=== PATIENT | male | born 1990 | race Two or more races ===

== ENCOUNTER 2016-08-06 05:25 | Emergency (ER) | payer BC ==
[2016-08-06] MEDS ORDERED: Dexamethasone IV* 4 MG/ML 1 ML (4 MG) PO ONE (05:47)
--- NOTE | 2016-08-06 05:56 | ED ---
Throat Pain/Nasal Congestion - HPI Summary HPI Summary: Patient presents for delayed evaluation of odynophagia with several days of preceding URI/nasal congestion. His PCP trialed azithromycin, which he has had several times before without problem. It hurts to swallow, but is able to swallow secretions. Denies shortness of breath, systemic symptoms. No positional or exertional symptoms. 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 - Epiglottits Risk Factors Epiglottis Risk Factors: Negative - Allergies/Home Medications Allergies/Adverse Reactions: Allergies Allergy/AdvReac Type Severity Reaction Status Date / Time Amoxicillin Allergy Intermediate Rash Verified 07/16/16 13:25 PMH/Surg Hx/FS Hx/Imm Hx Previously Healthy: Yes Endocrine/Hematology History: Denies: Hx Anticoagulant Therapy, Hx Diabetes, Hx Thyroid Disease Cardiovascular History: Denies: Hx Hypertension Respiratory History: Denies: Hx Asthma, Hx Chronic Obstructive Pulmonary Disease (COPD) GI History: Reports: Other GI Disorders - ulcerative colitis Denies: Hx Ulcer Sensory History: Reports: Hx Contacts or Glasses, Hx Eye Injury - 09/30/12 fell, hairline orbital fx Opthamlomology History: Reports: Hx Contacts or Glasses, Hx Eye Injury - 09/30/12 fell,hairline orbital fx - Surgical History Surgery Procedure, Year, and Place: testicular surgery. 9th grade, Tonsilectomy at 8 yrs age Hx Anesthesia Reactions: No Infectious Disease History: No Infectious Disease History: Denies: Hx Clostridium Difficile, Hx Hepatitis, Hx Human Immunodeficiency Virus (HIV), Hx of Known/Suspected MRSA, Hx Shingles, Hx Tuberculosis, Hx Known/ Suspected VRE, Hx Known/Suspected VRSA, History Other Infectious Disease, Traveled Outside the [place] in Last 30 Days - Social History Alcohol Use: Occasionally Substance Use Type: Reports: None Smoking Status (MU): Never Smoked Tobacco Have You Smoked in the Last Year: No Review of Systems Negative: Fever, Chills Negative: Photophobia Positive: Sore Throat. Negative: Ear Ache, Nasal Discharge Cardiovascular: Negative Negative: Palpitations, Chest Pain Respiratory: Negative Negative: Shortness Of Breath All Other Systems Reviewed And Are Negative: Yes Physical Exam Triage Information Reviewed: Yes Vital Signs On Initial Exam: Initial Vitals Temp Pulse Resp BP Pulse Ox 99.5 F 111 18 167/90 98 08/06/16 05:33 08/06/16 05:33 08/06/16 05:33 08/06/16 05:33 08/06/16 05:33 Vital Signs Reviewed: Yes Appearance: Positive: Well-Appearing, No Pain Distress, Well-Nourished Skin: Positive: Warm, Skin Color Reflects Adequate Perfusion, Dry Head/Face: Positive: Normal Head/Face Inspection Eyes: Positive: Normal, EOMI, VAMSI ENT: Positive: Normal ENT inspection, Hearing grossly normal, Pharyngeal erythema, Other - No neck stridor or stentor.. Negative: Nasal congestion, TMs normal, TM bulging, TM dull, TM red, Tonsillar swelling, Tonsillar exudate, Trismus, Muffled/hoarse voice Neck: Positive: Supple, Nontender, No Lymphadenopathy Respiratory/Lung Sounds: Positive: Clear to Auscultation, Breath Sounds Present Cardiovascular: Positive: Normal, RRR, Pulses are Symmetrical in both Upper and Lower Extremities Abdomen Description: Positive: Nontender, No Organomegaly, Soft Musculoskeletal: Positive: Normal, Strength/ROM Intact Neurological: Positive: Normal, Sensory/Motor Intact, Alert, Oriented to Person Place, Time, CN Intact II-III, Reflexes Intact, Normal Gait Diagnostics - Vital Signs Vital Signs Temp Pulse Resp BP Pulse Ox 08/06/16 05:33 99.5 F 111 18 167/90 98 - Laboratory Lab Statement: Any lab studies that have been ordered have been reviewed, and results considered in the medical decision making process. EENT Course/Dx - Differential Diagnoses Differential Diagnoses: Laryngitis, Pharyngitis, Sinusitis, Tonsilitis, URI/ Bronchitis, Other - Primary concern for URI due to particulate matter causing pharyngitis. Low concern for epiglottis or laryngitis. DC home with supportive care. Already on azithromycin and will FU with PCP. - Diagnoses Provider Diagnoses: Pharyngitis Discharge - Discharge Plan Condition: Stable Disposition: HOME Patient Education Materials: Pharyngitis (ED) Referrals: Radha Martinez MD [Primary Care Provider] - If Needed
[2016-08-06 06:24] VITALS: BP 161/82
== END 2016-08-06 06:24 | disposition home or self-care (01) ==
LOC: ED 05:25
DX: J02.9 Acute pharyngitis, unspecified (principal); Z88.0 Allergy status to penicillin
CPT/HCPCS: 99282; J1100

== ENCOUNTER 2017-03-09 17:32 | Emergency (ER) | payer BC ==
[2017-03-09 17:43] VITALS: BP 155/92
--- NOTE | 2017-03-09 18:32 | UC ---
Respiratory Complaint HPI - HPI Summary HPI Summary: 26 yo male with a 12 hr hx of runny nose/fever/chills and myalgias no st no n/v/d no CP or SOB - History of Current Complaint Chief Complaint: UCRespiratory Stated Complaint: URI Time Seen by Provider: 03/09/17 18:20 Hx Obtained From: Patient Onset/Duration: Sudden Onset, Lasting Hours Timing: Constant Severity Initially: Moderate Severity Currently: Moderate Pain Intensity: 4 Pain Scale Used: 0-10 Numeric Character: Cough: Nonproductive Alleviating Factors: Nothing Associated Signs And Symptoms: Positive: Fever, Chills, Nasal Congestion Related History: Similar Episode/Dx as: - flu - Allergies/Home Medications Allergies/Adverse Reactions: Allergies Allergy/AdvReac Type Severity Reaction Status Date / Time Amoxicillin Allergy Intermediate Rash Verified 03/09/17 17:43 PMH/Surg Hx/FS Hx/Imm Hx Previously Healthy: Yes - HX UC GI/ History: Other Other GI/ History: UC Other History Of: Negative For: Anticoagulant Therapy - Surgical History Surgical History: Yes Surgery Procedure, Year, and Place: testicular surgery. 9th grade. Tonsilectomy at 8 yrs age - Family History Known Family History: Positive: Other - no FHx UC Negative: Cardiac Disease, Hypertension, Diabetes - Social History Alcohol Use: Weekly Alcohol Amount: 1-2 times a week Substance Use Type: None Smoking Status (MU): Never Smoked Tobacco Have You Smoked in the Last Year: No Review of Systems Constitutional: Negative Skin: Negative Eyes: Negative ENT: Nasal Discharge Respiratory: Cough - NON PRODUCTIVE Cardiovascular: Negative Gastrointestinal: Negative Genitourinary: Negative Motor: Negative Neurovascular: Negative Musculoskeletal: Myalgia Neurological: Headache Psychological: Negative Is Patient Immunocompromised?: No All Other Systems Reviewed And Are Negative: Yes Physical Exam Triage Information Reviewed: Yes Appearance: Well-Appearing, No Pain Distress, Well-Nourished Vital Signs: Initial Vital Signs Temp 100.0 F 03/09/17 17:39 Pulse 112 03/09/17 17:39 Resp 16 03/09/17 17:39 BP 155/92 03/09/17 17:39 Pulse Ox 98 03/09/17 17:39 Vital Signs Reviewed: Yes Eyes: Positive: Conjunctiva Clear ENT: Positive: Hearing grossly normal, Pharynx normal, Nasal drainage, TMs normal. Negative: Tonsillar swelling, Tonsillar exudate, Trismus, Muffled/ hoarse voice Neck: Positive: Supple, Nontender, No Lymphadenopathy Respiratory: Positive: Lungs clear, Normal breath sounds, No respiratory distress, No accessory muscle use Cardiovascular: Positive: RRR, No Murmur, Tachycardia Abdomen Description: Positive: Nontender, No Organomegaly. Negative: CVA Tenderness (R), CVA Tenderness (L) Bowel Sounds: Positive: Present UC Diagnostic Evaluation - Laboratory Pertinent Lab Values Are: WNL - RAPID FLU (-) O2 Sat by Pulse Oximetry: 98 - normal/not hypoxic Respiratory Course/Dx - Differential Dx/Diagnosis Provider Diagnoses: VIRAL SYNDROME Discharge - Discharge Plan Condition: Stable Disposition: HOME Patient Education Materials: Acute Cough (ED) Forms: *Work Release Referrals: Radha Martinez MD [Primary Care Provider] - 2 Days Additional Instructions: FLU TEST (-) REST FLUIDS TYLENOL RECHECK FOR WORSENING SYMPTOMS SEE YOUR MD IN 2 DAYS FOR RECHECK IF NOT COMPLETELY BETTER YOUR BP WAS A LITTLE ELEVATED TONIGHT AND NEEDS TO BE FOLLOWED
== END 2017-03-09 19:37 | disposition home or self-care (01) ==
LOC: UCEAST 17:32
DX: B34.9 Viral infection, unspecified (principal)
CPT/HCPCS: 87502; 99211; G0463

== ENCOUNTER 2017-08-09 18:46 | Emergency (ER) | payer BC ==
[2017-08-09 19:32] VITALS: BP 163/89
--- NOTE | 2017-08-09 21:18 | UC ---
Alhaji Nunez Gabriel, scribed for Yoav Roland MD on 08/09/17 at 2036 . FLU HPI - HPI Summary HPI Summary: This patient is a 27 year old M presenting to [facility] with a chief complaint of flu like illness since 07-05-17. The patient rates the pain 3/10 in severity. Patient reports sweats, chills, cough, myalgia, [place], congestion and weakness. Patient denies ear pain. - History of Current Complaint Chief Complaint: UCGeneralIllness Stated Complaint: FLU-LIKE SYMPTOMS Time Seen by Provider: 08/09/17 20:29 Hx Obtained From: Patient Onset/Duration: Lasting Days, Still Present Severity Currently: Mild Severity Initially: Mild Pain Intensity: 3 Pain Scale Used: 0-10 Numeric Associated Signs & Symptoms: Positive: Myalgia, Cough, Nasal Congestion, Headache - Allergy/Home Medications Allergies/Adverse Reactions: Allergies Allergy/AdvReac Type Severity Reaction Status Date / Time Penicillins Allergy Rash And Verified 08/09/17 19:32 Itching PMH/Surg Hx/FS Hx/Imm Hx Other History Of: Negative For: Anticoagulant Therapy - Surgical History Surgical History: Yes Surgery Procedure, Year, and Place: testicular surgery. 9th grade. Tonsilectomy at 8 yrs age - Family History Known Family History: Positive: Other - no FHx UC Negative: Cardiac Disease, Hypertension, Diabetes - Social History Alcohol Use: Occasionally Alcohol Amount: 1-2 times a week Substance Use Type: None Smoking Status (MU): Never Smoked Tobacco Have You Smoked in the Last Year: No Review of Systems Constitutional: Chills, Other - sweats ENT: Sinus Congestion Musculoskeletal: Myalgia Neurological: Headache, Weakness All Other Systems Reviewed And Are Negative: Yes Physical Exam Triage Information Reviewed: Yes Vital Signs: Initial Vital Signs Temp 98.2 F 08/09/17 19: Pulse 68 08/09/17 19: Resp 18 08/09/17 19: BP 163/89 08/09/17 19: Pulse Ox 100 08/09/17 19:27 Vital Signs Reviewed: Yes - Additional Comments General: mildly ill appearing, no pain distress Skin: warm, color reflects adequate perfusion, dry Head: normal Eyes: EOMI, VAMSI ENT: normal Neck: supple, nontender Respiratory: CTA, breath sounds present Cardiovascular: RRR Abdomen: soft, nontender Bowel: present Musculoskeletal: normal, strength/ROM intact Neurological: normal, sensory/motor intact, A&O x3 Psychological: affect/mood appropriate Flu Course/Dx - Course Course Of Treatment: Medications reviewed. Allergies noted. FLU RESULTS DISCUSSED WITH PATIENT. VIRAL VERSES BACTERIAL INFECTION DISCUSSED WITH THE PATIENT. - Differential Dx/Diagnosis Provider Diagnoses: BRONCHITIS Discharge - Discharge Plan Condition: Stable Disposition: HOME Prescriptions: Azithromycin TAB* [Zithromax TAB (Z-OBDULIO) 250 mg #6 tabs] 2 tab PO .TODAY, THEN 1 DAILY #1 obdulio Patient Education Materials: Acute Bronchitis (ED) Forms: *Work Release Referrals: Radha Martinez MD [Primary Care Provider] - Additional Instructions: FOLLOW UP WITH YOUR DOCTOR. GET RECHECKED FOR ANY WORSENING OF YOUR CONDITION OR QUESTIONS OR CONCERNS. The documentation as recorded by the Alhaji mayberry Gabriel accurately reflects the service I personally performed and the decisions made by me, Yoav Roland MD.
== END 2017-08-09 21:26 | disposition home or self-care (01) ==
LOC: UCEAST 18:46
DX: J40 Bronchitis, not specified as acute or chronic (principal)
CPT/HCPCS: 87502; 99212; G0463